=== PATIENT | male | born 1985 | race Hispanic/Latino ===

== ENCOUNTER 2022-04-22 10:34 | Emergency (ER) | payer SELFPAY ==
[2022-04-22] MEDS ORDERED: Bupivacaine 0.25% HCL 30 ML VIAL ONE (11:30)
[2022-04-22] MEDS ORDERED: Boostrix 0.5 ML (Tdap) VIAL ONE (12:18)
[2022-04-22] MEDS ORDERED: Bacitracin 1 PK ONE (12:18)
== END 2022-04-22 12:56 | disposition home or self-care (01) ==
LOC: CSHERS 10:34
DX: S51.811A Laceration without foreign body of right forearm, initial encounter (principal); W25.XXXA Contact with sharp glass, initial encounter; Z23 Encounter for immunization
CPT/HCPCS: 12002; 90471; 90715; S0020

== ENCOUNTER 2022-10-27 12:10 | Emergency (ER) | payer SELFPAY | END 2022-10-27 13:56 | disposition home or self-care (01) | LOC: CSHERS 12:10 | DX: S81.821A Laceration with foreign body, right lower leg, initial encounter (principal); W45.8XXA Other foreign body or object entering through skin, initial encounter ==